=== PATIENT | female | born 2000 | race Caucasian/White ===

== ENCOUNTER 2020-09-01 22:04 | Emergency (ER) | payer OTHER ==
[~2020-09-01] VITALS: Ht 167.7 cm; Wt 61.2 kg
[2020-09-01] MEDS ORDERED: ONDANSETRON 4 MG/2 ML (SDV) Z0FRAN ONE (22:24)
[2020-09-01] MEDS ORDERED: ONDANSETRON 4 MG/2 ML (SDV) Z0FRAN IVP ONE (22:30)
[2020-09-01] MEDS ORDERED: KETOROLAC 30 MG/ML VIAL IVP ONE (22:30)
[2020-09-01] MEDS ORDERED: FAMOTIDINE 20MG/2ML IV (PEPCID) IVP ONE (22:30)
[2020-09-01 22:33] LABS: BASOPHILS % (AUTO) 0 % (0-10); EOSINOPHILS % (AUTO) 0 % (0-10); HEMATOCRIT 39 % (35-52); HEMOGLOBIN 14.3 g/dL (11.5-16.0); LYMPHOCYTES # (AUTO) 0.6 10^3/uL (1.0-4.0); LYMPHOCYTES % (AUTO) 5 % (12-44); MEAN CORPUSCULAR HEMOGLOBIN 31 pg (25-34); MEAN CORPUSCULAR HGB CONC 36 g/dL (32-36); MEAN CORPUSCULAR VOLUME 86 fL (80-99); MEAN PLATELET VOLUME 10.4 fL (9.0-12.2); MONOCYTES # (AUTO) 0.5 10^3/uL (0.0-1.0); MONOCYTES % (AUTO) 5 % (0-12); NEUTROPHILS # (AUTO) 10.2 10^3/uL (1.8-7.8); NEUTROPHILS % (AUTO) 90 % (42-75); PLATELET COUNT 234 10^3/uL (130-400); WHITE BLOOD COUNT 11.4 10^3/uL (4.3-11.0)
[2020-09-01] MEDS ORDERED: LACTATED RINGERS 1,000 ML IV ONE (22:45)
[2020-09-01 22:48] LABS: ALANINE AMINOTRANSFERASE 18 U/L (0-55); ALBUMIN 4.6 GM/DL (3.2-4.5); ALKALINE PHOSPHATASE 39 U/L (40-136); BILIRUBIN,TOTAL 0.9 MG/DL (0.1-1.0); BUN/CREATININE RATIO 11; CALCIUM 9.6 MG/DL (8.5-10.1); CARBON DIOXIDE 17 MMOL/L (21-32); CHLORIDE 102 MMOL/L (98-107); CREATININE SERUM 0.82 MG/DL (0.60-1.30); GFR ESTIMATED > 60; GLUCOSE 116 MG/DL (70-105); POTASSIUM 3.5 MMOL/L (3.6-5.0); SODIUM 134 MMOL/L (135-145); TOTAL PROTEIN 7.9 GM/DL (6.4-8.2)
[2020-09-01 22:49] LABS: LYMPHOCYTES % (MANUAL) 6 %; MONOCYTES % (MANUAL) 3 %; NEUTROPHILS % (MANUAL) 91 %
[2020-09-01 22:50] LABS: RBC MORPH NORMAL
--- NOTE | 2020-09-01 23:04 | ED General ---
General Chief Complaint: Respiratory Problems Stated Complaint: SOA/HEAD ACHE/STOMACH PAIN/VOMITTING Source of Information: Patient Exam Limitations: No Limitations History of Present Illness Date Seen by Provider: Sep 01, 2020 Time Seen by Provider: 22:15 Initial Comments This 20-year-old young lady presents to the emergency room with symptoms of intense headache, vomiting, abdominal discomfort, and shortness of breath which has the appearance of hyperventilation to this provider. She received her second COVID-19 vaccine earlier this morning and symptoms started after that. She has not been taking any medications for her symptoms because of the vomiting. She is afebrile at this time. She has a history of headaches in the past that are difficult to treat. Allergies and Home Medications Allergies Coded Allergies: No Known Drug Allergies (Unverified , 09/01/20) Patient Home Medication List Home Medication List Reviewed: Yes Review of Systems Review of Systems Constitutional: no symptoms reported EENTM: see HPI Respiratory: see HPI Cardiovascular: other (Tachycardia on the monitor) Gastrointestinal: see HPI Genitourinary: no symptoms reported : No Musculoskeletal: no symptoms reported Skin: no symptoms reported Psychiatric/Neurological: See HPI Hematologic/Lymphatic: No Symptoms Reported Immunological/Allergic: no symptoms reported Past Lfmfoyq-Fqfqlh-Ovcney Hx Past Med/Social Hx: Reviewed Nursing Past Med/Soc Hx Past Medical History Surgeries: Yes Orthopedic (Shoulder) Respiratory: No Cardiac: No Neurological: Yes Headaches /Migraines : No Reproductive Disorders: No Genitourinary: No Gastrointestinal: No Musculoskeletal: No Endocrine: No HEENT: No Cancer: No Psychosocial: No Physical Exam Vital Signs Vital Signs - First Documented 09/01/20 22:10 Temp 38.0 Pulse 119 Resp 22 B/P (MAP) 129/79 (96) Pulse Ox 98 O2 Delivery Room Air Capillary Refill : Height, Weight, BMI Height: '" Weight: lbs. oz. kg; BMI Method: General Appearance: WD/WN, Moderate Distress HEENT: PERRL/EOMI, Normal ENT Inspection, Pharynx Normal Neck: Normal Inspection Respiratory: Lungs Clear, Normal Breath Sounds, No Accessory Muscle Use, No Respiratory Distress Cardiovascular: No Edema, No Murmur, Tachycardia Gastrointestinal: Normal Bowel Sounds, Non Tender, Soft Extremity: Normal Inspection, No Pedal Edema Neurologic/Psychiatric: Alert, Oriented x3, No Motor/Sensory Deficits, pouako kura kaupapa maori II- XII Norm as Tested, Other (Anxious, appears to be hyperventilating) Skin: Normal Color, Warm/Dry Progress/Results/Core Measures Suspected Sepsis SIRS Temperature: Pulse: Respiratory Rate: Laboratory Tests 09/01/20 22:20: White Blood Count 11.4H Blood Pressure / Mean: Laboratory Tests 09/01/20 22:20: Creatinine 0.82, Platelet Count 234, Total Bilirubin 0.9 Results/Orders Lab Results Laboratory Tests Test 09/01/20 22:20 09/01/20 22:27 Range/Units White Blood Count 11.4 H 4.3-11.0 10^3/uL Red Blood Count 4.55 3.80-5.11 10^6/uL Hemoglobin 14.3 11.5-16.0 g/dL Hematocrit 39 35-52 % Mean Corpuscular Volume 86 80-99 fL Mean Corpuscular Hemoglobin 31 25-34 pg Mean Corpuscular Hemoglobin Concent 36 32-36 g/dL Red Cell Distribution Width 11.8 10.0-14.5 % Platelet Count 234 130-400 10^3/uL Mean Platelet Volume 10.4 9.0-12.2 fL Immature Granulocyte % (Auto) 0 % Neutrophils (%) (Auto) 90 H 42-75 % Lymphocytes (%) (Auto) 5 L 12-44 % Monocytes (%) (Auto) 5 0-12 % Eosinophils (%) (Auto) 0 0-10 % Basophils (%) (Auto) 0 0-10 % Neutrophils # (Auto) 10.2 H 1.8-7.8 10^3/uL Lymphocytes # (Auto) 0.6 L 1.0-4.0 10^3/uL Monocytes # (Auto) 0.5 0.0-1.0 10^3/uL Eosinophils # (Auto) 0.0 0.0-0.3 10^3/uL Basophils # (Auto) 0.0 0.0-0.1 10^3/uL Immature Granulocyte # (Auto) 0.0 0.0-0.1 10^3/uL Neutrophils % (Manual) 91 % Lymphocytes % (Manual) 6 % Monocytes % (Manual) 3 % Blood Morphology Comment NORMAL Sodium Level 134 L 135-145 MMOL/L Potassium Level 3.5 L 3.6-5.0 MMOL/L Chloride Level 102 98-107 MMOL/L Carbon Dioxide Level 17 L 21-32 MMOL/L Anion Gap 15 H 5-14 MMOL/L Blood Urea Nitrogen 9 7-18 MG/DL Creatinine 0.82 0.60-1.30 MG/DL Estimat Glomerular Filtration Rate > 60 BUN/Creatinine Ratio 11 Glucose Level 116 H 70-105 MG/DL Calcium Level 9.6 8.5-10.1 MG/DL Corrected Calcium 8.5-10.1 MG/DL Total Bilirubin 0.9 0.1-1.0 MG/DL Aspartate Amino Transf (AST/SGOT) 21 5-34 U/L Alanine Aminotransferase (ALT/SGPT) 18 0-55 U/L Alkaline Phosphatase 39 L 40-136 U/L C-Reactive Protein High Sensitivity 0.85 H 0.00-0.50 MG/DL Total Protein 7.9 6.4-8.2 GM/DL Albumin 4.6 H 3.2-4.5 GM/DL Serum Test, Qualitative NEGATIVE NEGATIVE Coronavirus 2019 (BETSY) Negative Negative Micro Results Microbiology 09/01/20 Influenza Types A,B Antigen (KHALIDA) - Final, Complete My Orders Orders - MARIELY GOMES MD Ondansetron Injection (Zofran Injectio (09/01/20 22:30) Famotidine Injection (Pepcid Injection) (09/01/20 22:30) Ketorolac Injection (Toradol Injection) (09/01/20 22:30) Cbc With Automated Diff (09/01/20 22:21) Comprehensive Metabolic Panel (09/01/20 22:21) Hs C Reactive Protein (09/01/20 22:21) Influenza A And B Antigens (09/01/20 22:21) Hcg,Qualitative Serum (09/01/20 22:21) Covid 19 Inhouse Test (09/01/20 22:21) Ondansetron Injection (Zofran Injectio (09/01/20 22:24) Manual Differential (09/01/20 22:20) Ed Iv/Invasive Line Start (09/01/20 22:38) Lactated Ringers (Lr 1000 Ml Iv Solution (09/01/20 22:45) Meclizine Tablet (Antivert Tablet) (09/01/20 23:15) Lorazepam Injection (Ativan Injection) (09/01/20 23:30) Rx-Hydrocodone/Apap 5-325 Mg (Rx-Vicodin (09/02/20 00:00) Rx-Ondansetron Po (Rx-Zofran Po) (09/01/20 23:58) Medications Given in ED Current Medications Medications Dose Ordered Sig/Rosemary Route Start Time Stop Time Status Last Admin Dose Admin Acetaminophen/ Hydrocodone Bitart 1 ea Q4H PRN PO 09/02/20 00:00 09/02/20 00:37 DC 09/02/20 00:19 1 EA Famotidine 20 mg ONCE ONCE IVP 09/01/20 22:30 09/01/20 22:31 DC 09/01/20 22:34 20 MG Ketorolac Tromethamine 30 mg ONCE ONCE IVP 09/01/20 22:30 09/01/20 22:31 DC 09/01/20 22:33 30 MG Lactated Ringer's 1,000 ml @ 0 mls/hr Q0M ONCE IV 09/01/20 22:45 09/01/20 22:46 DC 09/01/20 22:41 1,000 MLS/HR Lorazepam 0.5 mg ONCE ONCE IVP 09/01/20 23:30 09/01/20 23:31 DC 09/01/20 23:35 0.5 MG Meclizine HCl 25 mg ONCE ONCE PO 09/01/20 23:15 09/01/20 23:16 DC 09/01/20 23:15 25 MG Ondansetron HCl 8 mg ONCE ONCE IVP 09/01/20 22:30 09/01/20 22:31 DC 09/01/20 22:33 8 MG Vital Signs/I&O 09/01/20 09/02/20 22:10 00:38 Temp 38.0 38.0 Pulse 119 119 Resp 22 22 B/P (MAP) 129/79 (96) 129/79 (96) Pulse Ox 98 98 O2 Delivery Room Air 09/02/20 00:00 Intake Total 1000 ml Balance 1000 ml Capillary Refill : Progress Note : Time: 23:03 Progress Note Rapid Covid and influenza screens were negative. A liter of IV fluid was infused. Toradol was given for pain. Lab work-up was otherwise unremarkable. Patient is feeling somewhat improved but is still complaining of feeling dizzy after the medications. She feels a little lightheaded and then also has a bit of a vertigo sensation when she closes her eyes. She still also feels rather anxious. We will treat her with some meclizine and watch her for a while longer. IV fluids are almost complete and her heart rate has decreased to about 100. She still seems to be hyperventilating a little bit. Departure Impression Primary Impression: Nausea & vomiting Qualified Codes: R11.2 - Nausea with vomiting, unspecified Additional Impressions: Acute headache Qualified Codes: R51 - Headache Adverse reaction to vaccine Qualified Codes: T50.Z95A - Adverse effect of other vaccines and biological substances, initial encounter Disposition: 01 HOME, SELF-CARE Condition: Improved Departure-Patient Inst. Decision time for Depature: 00:26 Patient Instructions: HEADACHE Add. Discharge Instructions: Use Zofran (ondansetron) 1 tablet under the tongue every 4 hours as needed for nausea and vomiting. Drink plenty of clear liquids to stay well-hydrated. Gradually advance your diet with small quantities of bland food as tolerated. You may use an [id number] medication for your headache such as ibuprofen up to 600 mg every 6 hours as needed or Excedrin according to package instructions. Add hydrocodone for pain not controlled by [id number] medications. Be careful not to exceed recommended doses of acetaminophen when you combine these medications. You should take no more than 1000 mg of acetaminophen every 6 hours. Return to care if you have worsening symptoms. Call with questions or concerns. All discharge instructions reviewed with patient and/or family. Voiced understanding. MARIELY GOMES MD Sep 01, 2020 23:04
[2020-09-01] MEDS ORDERED: MECLIZINE 25 MG (ANTIVERT) TAB PO ONE (23:15)
[2020-09-01] MEDS ORDERED: LORazepam INJ 2 MG/ML (ATIVAN) VIAL IVP ONE (23:30)
[2020-09-01] MEDS ORDERED: RX-ONDANSETRON 4 MG ODT (ZOFRAN) PPK #4 SL STA (23:58)
[2020-09-02] MEDS ORDERED: RX-HYDROCODONE/APAP 5/325 MG #4 TAB PK PO PRN
[2020-09-02 00:38] VITALS: BP 129/79
== END 2020-09-02 00:37 | disposition home or self-care (01) ==
LOC: ER 22:09
DX: R11.2 Nausea with vomiting, unspecified (principal); R51.9 Headache, unspecified; T88.1XXA Other complications following immunization, not elsewhere classified, initial encounter; T50.B95A Adverse effect of other viral vaccines, initial encounter; F41.9 Anxiety disorder, unspecified; Z20.828 Contact with and (suspected) exposure to other viral communicable diseases
CPT/HCPCS: 80053; 84703; 85007; 85027; 86141; 87804; 99284; U0002; 36415; 87635

== ENCOUNTER 2020-12-02 05:31 | Outpatient (CLI) | payer OTHER ==
[~2020-12-02] VITALS: Ht 170.2 cm; Wt 65.8 kg
[2020-12-02] MEDS ORDERED: BIRTH CONTROL (09:46)
[2020-12-03] MEDS ORDERED: MTC10T PO (11:32)
== END 2020-12-02 11:05 ==
LOC: PREOP 05:31
PROVIDERS: ATTEND Internal Medicine
DX: Z01.812 Encounter for preprocedural laboratory examination (principal); Z20.822 Contact with and (suspected) exposure to COVID-19
CPT/HCPCS: 87635

== ENCOUNTER 2020-12-03 09:56 | Day surgery (SDC) | payer OTHER ==
--- NOTE | 2020-12-01 21:41 | HISTORY AND PHYSICAL ---
DATE OF SERVICE: EGD HISTORY AND PHYSICAL HISTORY OF PRESENT ILLNESS: The patient is a 20-year-old [employer] student referred by Dr. Ng for consideration for EGD evaluation. She reports postprandial nausea and vomiting since August of this year. She presented to the emergency room on the . No headache, nausea, vomiting, fever. She had received her second COVID vaccination probably that morning or the day before, she was febrile. Her white count was mildly elevated. Urine test was negative. No other evaluation was done. She is also COVID negative. Since that time, she had morning nausea, aggravated postprandially and would vomit sometimes while she is eating. Nausea does not wake her up at night. On Sunday, she had an episode of bright red blood in her emesis and denied any history of dry heaves prior to this episode of hematemesis. She denied melena and does not believe she has lost any weight. She was seen in [facility] yesterday and had a negative urine test again before her periods have been normal. She denies any associated with abdominal pain, does report early satiety and some postprandial bloating sensation. She has had no diarrhea or constipation. PAST MEDICAL HISTORY: She has been on the same control pill since 10/2019 and reports no previous symptoms similar to presentation symptoms noted above. PAST SURGICAL HISTORY: She had right shoulder surgery for either labral or rotator cuff tear and had wisdom tooth extraction in 2018. SOCIAL HISTORY: She is a student at [employer] with no past smoking history and no reported alcohol intake. When asked her about marijuana/THC in any form, she admitted to do so. FAMILY HISTORY: Her father was diagnosed with pituitary tumor and underwent resection at [facility] at the age of 49. He is 50, living. Mother is 41 with no health problems. PHYSICAL EXAMINATION: GENERAL: Reveals an anxious white female, appears to be in no acute distress. HEENT: Unremarkable. Sclerae are nonicteric. Oral cavity clear. VITAL SIGNS: Weight 144 pounds, blood pressure 110/70. NECK: Revealed no JVD, adenopathy or bruits. CHEST: Clear to auscultation. CARDIOVASCULAR: Reveals a regular rate and rhythm without murmur, S3 or S4. ABDOMEN: Soft, supple without mass, organomegaly or tenderness. Bowel sounds are present, but hypoactive. No distention noted. EXTREMITIES: Reveal no cyanosis, clubbing or edema. ASSESSMENT: For further evaluation of postprandial nausea and vomiting and an episode of hematemesis, the patient is set up for EGD evaluation this Sunday. Further recommendations will be pending. In the meantime, we will allow the patient continue Prilosec 20 mg daily. Job ID: [id number] DocumentID: [id number] Dictated Date: 12/01/2020 20:11:02 Qualified Craft Worker Electrician Date: 12/01/2020 20:40:50 Dictated By: OCTAVIO CUEVAS MD [facility]
[~2020-12-03] VITALS: Ht 170.2 cm; Wt 65.8 kg
[~2020-12-03 09:56] MED LIST: BIRTH CONTROL; LACTATED RINGERS 1,000 ML IV ONE
[2020-12-03] MEDS ORDERED: LACTATED RINGERS 1,000 ML IV STA (10:05)
[2020-12-03] MEDS ORDERED: MIDAZOLAM 2 MG/2 ML (VERSED) VIAL ONE (10:11)
[2020-12-03] MEDS ORDERED: PROPOFOL INJECTION 0 ML IV ONE (10:11)
[2020-12-03] MEDS ORDERED: LIDOCAINE JELLY 2% 6 ML SYRINGE MM PRN (10:15)
[2020-12-03] MEDS ORDERED: HURRICAINE EXT TUBE (BENZOCAINE) XX PRN (10:15)
--- NOTE | 2020-12-03 10:18 | Pre-Op Note & Conscious Sedat ---
Pre-Operative Progress Note H&P Reviewed The H&P was reviewed, patient examined and no changes noted. Date H&P Reviewed: Dec 03, 2020 Time H&P Reviewed: 10:00 Conscious Sedation Pre-Proced ASA Score 1 For ASA 3 and 4: Consider anesthesia and medical clearance. Also, for patients with a history of failed moderate sedation consider anesthesia. Airway Lungs Heart ASA score ASA 1: a normal healthy patient ASA 2: a patient with a mild systemic disease (mid diabetes, controlled hypertension, obesity ASA 3: a patient with a severe systemic disease that limits activity (angina, COPD, prior Myocardial infarction) ASA 4: a patient with an incapacitating disease that is a constant threat to life (CHF, renal failure) ASA 5: a moribund patient not expected to survive 24 hrs. (ruptured aneurysm) ASA 6: a declared brain- patient whose organs are being harvested. For emergent operations, add the letter E after the classification Mallampati Classification Grade 2 Sedation Plan Analgesia, Amnesia, Plan communicated to team members, Discussed options with patient/fam, Discussed risks with patient/fam The patient is an appropriate candidate to undergo the planned procedure, sedation, and anesthesia. The patient immediately re-assessed prior to indication. OCTAVIO CUEVAS MD Dec 03, 2020 10:18
[2020-12-03] MEDS ORDERED: LIDOCAINE JELLY 2% 6 ML SYRINGE ONE (10:25)
[2020-12-03] MEDS ORDERED: HURRICAINE EXT TUBE (BENZOCAINE) ONE (10:25)
[2020-12-03 10:30] VITALS: BP 124/76
[2020-12-03] MEDS ORDERED: PROPOFOL INJECTION 50 ML IV ONE (10:36)
[2020-12-03 10:50] VITALS: BP 106/56
[2020-12-03 10:55] VITALS: BP 107/58
--- NOTE | 2020-12-03 10:56 | Anesthesia-General Post-Op ---
MAC Patient Condition Mental Status/LOC: Same as Preop Cardiovascular: Satisfactory Nausea/Vomiting: Absent Respiratory: Satisfactory Pain: Controlled Complications: Absent Post Op Complications Complications None Follow Up Care/Instructions Patient Instructions None needed. Anesthesiology Discharge Order Discharge Order Patient is doing well, no complaints, stable vital signs, no apparent adverse anesthesia problems. No complications reported per nursing. SHARLENE TURNER CRNA Dec 03, 2020 10:56
[2020-12-03 11:00] VITALS: BP_SYST 113; BP_SYST 127; BP_DIAS 66; BP_DIAS 82
[2020-12-03 11:30] VITALS: BP 114/75
[2020-12-03] MEDS ORDERED: MTC10T PO (11:32)
[2020-12-03 11:35] VITALS: BP 114/75
--- NOTE | 2020-12-03 20:34 | OPERATIVE REPORT ---
DATE OF SERVICE: EGD SUMMARY INDICATION FOR PROCEDURE: Refractory nausea, vomiting with an episode of hematemesis. DESCRIPTION OF PROCEDURE: The patient was placed in the left lateral decubitus position. The endoscope was inserted in the oral cavity and under direct visualization, esophagus was intubated. Endoscope was passed down the esophagus through the stomach and into the second portion of the duodenum. Careful inspection was made as the endoscope was withdrawn. FINDINGS: The proximal mid esophagus was unremarkable. There was some mild erythema noted at the Z line with a small sliding hiatal hernia. There was no evidence for erosive esophagitis. No evidence for Ashley-Baez tear was noted. The cardia and the fundus of the stomach were unremarkable except for the fact that there was probably about 100 mL of bilious fluid without retained food. There is some mild antral erythema present. A biopsy was obtained and submitted for Helicobacter evaluation. The pylorus, pyloric channel, duodenal bulb and second portion of duodenum were unremarkable. ASSESSMENT: 1. Mild erythema was noted at the Z line suggesting nonerosive esophagitis. 2. The patient had about 100 mL of bilious fluid in the stomach, reporting that her last p.o. intake was 15 hours prior to the procedure, suggesting a possible component of gastroparesis. We did send out a prescription for metoclopramide to take 10 mg half an hour before meals and at bedtime and I will have the patient follow up next week for discussion after histopathology report is available. I thank you for the referral of this pleasant lady. Job ID: [id number] DocumentID: [id number] Dictated Date: 12/03/2020 11:39:27 Time Study Technologist Date: 12/03/2020 17:18:47 Dictated By: OCTAVIO CUEVAS MD
== END 2020-12-03 11:43 | disposition home or self-care (01) ==
LOC: ENDO 09:56
PROVIDERS: ATTEND Internal Medicine
DX: K20.90 Esophagitis, unspecified without bleeding (principal); K44.9 Diaphragmatic hernia without obstruction or gangrene; K92.0 Hematemesis
CPT/HCPCS: 84703; 88305

== ENCOUNTER → 2022-05-19 | Outpatient (RCR) | payer OTHER ==
[~2022-05-19] MED LIST changes: -LACTATED RINGERS 1,000 ML IV ONE; +MTC10T PO
== END | disposition home or self-care (01) ==
PROVIDERS: ATTEND Orthopaedic Surgery
DX: M25.511 Pain in right shoulder (principal)

== ENCOUNTER 2022-05-26 11:28 | Outpatient (RCR) | payer OTHER | END 2022-06-19 | disposition home or self-care (01) | PROVIDERS: ATTEND Orthopaedic Surgery | DX: M25.511 Pain in right shoulder (principal); Z98.890 Other specified postprocedural states ==

== ENCOUNTER 2022-12-12 10:00 | Outpatient (RCR) | payer OTHER | END 2022-12-17 | disposition home or self-care (01) | PROVIDERS: ATTEND Orthopaedic Surgery | DX: Z98.890 Other specified postprocedural states (principal) ==

== ENCOUNTER 2023-01-09 08:27 | Outpatient (RCR) | payer OTHER | END 2023-01-17 | disposition home or self-care (01) | PROVIDERS: ATTEND Orthopaedic Surgery | DX: Z98.890 Other specified postprocedural states (principal) ==

== ENCOUNTER 2023-01-22 09:14 | Outpatient (RCR) | payer OTHER | END 2023-02-16 | disposition home or self-care (01) | PROVIDERS: ATTEND Orthopaedic Surgery | DX: Z98.890 Other specified postprocedural states (principal) ==

== ENCOUNTER 2023-03-12 16:22 | Outpatient (RCR) | payer OTHER | END 2023-03-19 | disposition home or self-care (01) | PROVIDERS: ATTEND Orthopaedic Surgery | DX: Z98.890 Other specified postprocedural states (principal) ==

== ENCOUNTER 2023-04-17 08:03 | Outpatient (RCR) | payer OTHER | END 2023-04-19 | disposition home or self-care (01) | PROVIDERS: ATTEND Orthopaedic Surgery | DX: Z98.890 Other specified postprocedural states (principal) ==

== ENCOUNTER 2023-05-22 08:00 | Outpatient (RCR) | payer OTHER | END 2023-06-19 | disposition home or self-care (01) | PROVIDERS: ATTEND Orthopaedic Surgery | DX: Z98.890 Other specified postprocedural states (principal) ==